=== PATIENT | female | born 1955 | race Two or more races ===

== ENCOUNTER 2021-09-21 20:32 | Emergency (ER) | payer OTHER ==
[~2021-09-21] VITALS: Ht 157.5 cm; Wt 80.3 kg
== END 2021-09-21 23:21 | disposition home or self-care (01) ==
LOC: ER 20:32
DX: K29.60 Other gastritis without bleeding (principal)

== ENCOUNTER 2021-10-19 22:59 | Emergency (ER) | payer OTHER ==
[~2021-10-19] VITALS: Ht 157.5 cm; Wt 78.5 kg
[2021-10-20] MEDS ORDERED: KETO10TA2 PO (07:49)
[2021-10-20] MEDS ORDERED: ORPHENADRINE C100 MG PO (07:49)
[2021-10-20] MEDS ORDERED: PEPCID40 MG PO (07:51)
== END 2021-10-20 08:24 | disposition home or self-care (01) ==
LOC: ER 22:59
DX: M54.50 Low back pain, unspecified (principal)

== ENCOUNTER 2024-05-24 00:16 | Emergency (ER) | payer OTHER ==
[~2024-05-24] VITALS: Ht 157.5 cm; Wt 75.7 kg
[~2024-05-24 00:16] MED LIST: KETO10TA2 PO; ORPHENADRINE C100 MG PO; PEPCID40 MG PO
[2024-05-24] MEDS ORDERED: METOCLOPRAMIDE HCL 5 MG/ML VIAL IM STA (00:57)
[2024-05-24] MEDS ORDERED: HYOSCYAMINE SULFATE 0.125 MG TAB.SUBL SL STA (00:58)
[2024-05-24] MEDS ORDERED: ONDANSETRON HCL 2 MG/ML VIAL IV STA (01:00)
[2024-05-24] MEDS ORDERED: RINGERS SOLUTION,LACTATED 500 ML IV STA (01:09)
== END 2024-05-24 03:51 | disposition home or self-care (01) ==
LOC: ER 00:17
DX: K29.70 Gastritis, unspecified, without bleeding (principal); R11.10 Vomiting, unspecified
CPT/HCPCS: 96365; 96372; 99282; J2405; J2765